=== PATIENT | female | born 1995 | race Caucasian/White ===

== ENCOUNTER 2017-03-28 19:38 | Emergency (ER) | payer OTHER ==
--- NOTE | 2017-03-28 20:56 | ED ---
Female Urogenital HPI - General Chief complaint: Vaginal Bleeding Stated complaint: 12 weeks and bleeding Time Seen by Provider: 03/28/17 20:15 Source: patient, RN notes reviewed, old records reviewed Mode of arrival: ambulatory Limitations: no limitations - History of Present Illness Initial comments: This patient is a 21-year-old female presents emergency department to the chief complaint of an episode of vaginal bleeding. She reports that she was at dinner and Estuardo is that a terry of fluid from her vaginal wall. She states that she is currently 12 weeks . She follows up with an SCHEDULING ASSISTANT in [place]. She states that she has no significant cramping or lower abdominal pain. Last Menstrual Period: 01/09/17 - Related Data Home Medications Medication Instructions Recorded Confirmed EPINEPHrine (Auto Inject) [Epipen] 0.3 mg IM ONCE PRN 12/21/16 03/28/17 lamoTRIgine [LaMICtal] 200 mg PO BID 12/21/16 03/28/17 Pnv,Calcium 72/Iron/Folic Acid 1 tab PO DAILY 03/28/17 03/28/17 [ Plus Tablet] Allergies Allergy/AdvReac Type Severity Reaction Status Date / Time blueberry Allergy Unknown Verified 03/28/17 20:13 coconut Allergy Unknown Verified 03/28/17 20:13 egg Allergy Unknown Verified 03/28/17 20:13 hydromorphone [From Dilaudid] Allergy Anaphylaxis Verified 03/28/17 20:13 Mushroom Allergy Unknown Verified 03/28/17 20:13 Penicillins Allergy Rash/Hives Verified 03/28/17 20:13 Review of Systems ROS Statement: Those systems with pertinent positive or pertinent negative responses have been documented in the HPI. ROS Other: All systems not noted in ROS Statement are negative. Past Medical History Past Medical History: Asthma, Seizure Disorder Additional Past Medical History / Comment(s): Endometriosis, TMJ, chronic migraines History of Any Multi-Drug Resistant Organisms: None Reported Past Surgical History: Adenoidectomy, Tonsillectomy Past Psychological History: Anxiety, Bipolar, Depression Smoking Status: Current every day smoker Past Alcohol Use History: None Reported Past Drug Use History: None Reported General Exam - General Exam Comments Initial Comments: This patient is well appearing 21 year old female, no distress. Limitations: no limitations General appearance: alert, in no apparent distress Head exam: Present: atraumatic, normocephalic, normal inspection Eye exam: Present: normal appearance, PERRL, EOMI. Absent: scleral icterus, conjunctival injection, periorbital swelling ENT exam: Present: normal exam, mucous membranes moist Neck exam: Present: normal inspection. Absent: tenderness, meningismus, lymphadenopathy Cardiovascular Exam: Present: regular rate, normal rhythm, normal heart sounds. Absent: systolic murmur, diastolic murmur, rubs, gallop, clicks External exam: Present: normal external exam Speculum exam: Present: normal speculum exam. Absent: erythema, vaginal discharge, vaginal bleeding By manual exam: Present: normal by manual exam Extremities exam: Present: normal inspection, full ROM, normal capillary refill. Absent: tenderness, pedal edema, joint swelling, calf tenderness Back exam: Present: normal inspection Neurological exam: Present: alert, oriented X3, CN II-XII intact Psychiatric exam: Present: normal affect, normal mood Skin exam: Present: warm, dry, intact, normal color. Absent: rash Course Vital Signs 03/28/17 03/28/17 19:59 22:41 Temperature 98.3 F 98.5 F Pulse Rate 97 78 Respiratory 20 18 Rate Blood Pressure 142/83 130/60 O2 Sat by Pulse 100 100 Oximetry Medical Decision Making - Medical Decision Making This patient is a 21-year-old female presents emergency department to the chief complaint of an episode of vaginal bleeding. She reports that she was at dinner and Estuardo is that a terry of fluid from her vaginal wall. Patient has no vaginal bleeding and cervix appears normal. US shows viable IUP measing 12 weeks. No complicating process. Patient will follow up with PCP. She is RH negative but there is no bleeding or signs of active miscarriage. - Lab Data Lab Results 03/28/17 03/28/17 03/28/17 Range/Units 20:24 20:36 20:40 HCG, Quant mIU/mL Urine Color Light Yellow Urine Appearance Clear (Clear) Urine pH 5.5 (5.0-8.0) Ur Specific [place] 1.005 (1.001-1.035) Urine Protein Negative (Negative) Urine Glucose (UA) Negative (Negative) Urine Ketones Negative (Negative) Urine Blood Negative (Negative) Urine Nitrite Negative (Negative) Urine Bilirubin Negative (Negative) Urine Urobilinogen <2.0 (<2.0) mg/dL Ur Leukocyte Esterase Moderate H (Negative) Urine WBC 5 (0-5) /hpf Ur Squamous Epith Cells 5 H (0-4) /hpf Amorphous Sediment Rare H (None) /hpf Trichomonas Ag (Rapid) Negative (Negative) Blood Type O Negative Blood Type Recheck No 03/28/17 Range/Units 20:40 HCG, Quant 51658.6 mIU/mL Urine Color Urine Appearance (Clear) Urine pH (5.0-8.0) Ur Specific [place] (1.001-1.035) Urine Protein (Negative) Urine Glucose (UA) (Negative) Urine Ketones (Negative) Urine Blood (Negative) Urine Nitrite (Negative) Urine Bilirubin (Negative) Urine Urobilinogen (<2.0) mg/dL Ur Leukocyte Esterase (Negative) Urine WBC (0-5) /hpf Ur Squamous Epith Cells (0-4) /hpf Amorphous Sediment (None) /hpf Trichomonas Ag (Rapid) (Negative) Blood Type Blood Type Recheck - Radiology Data Radiology results: report reviewed Live IUP measuring 11 weeks and 4 days. Small subchorionic hemorrhage measuring 1.2 cm. Disposition Clinical Impression: 12 weeks gestation of , Vaginal spotting Disposition: HOME SELF-CARE Condition: Good Instructions: Threatened Miscarriage (ED) Additional Instructions: follow-up with primary care physician and SCHEDULING ASSISTANT. No heavy lifting, pelvic rest. Return to emergency department if any alarming signs or symptoms occur. hormone measures 51,520. Referrals: Nonstaff,Physician [Primary Care Provider] - 1-2 days Time of Disposition: 22:25
[2017-03-28 21:12] LABS: Amorphous Sediment,Urine Rare /hpf; Appearance,Urine Clear (Clear); Bilirubin,Urine Negative (Negative); Blood,Urine Negative (Negative); Color,Urine Light Yellow; Glucose,Urine (UA) Negative (Negative); Ketones,Urine Negative (Negative); Leukocyte Esterase,Urine Moderate (Negative); Nitrite,Urine Negative (Negative); PH, Urine 5.5 (5.0-8.0); Protein,Urine Negative (Negative); Specific Gravity,Urine 1.005 (1.001-1.035); Squamous Epithelial Cell,Urine 5 /hpf (0-4); Urobilinogen,Urine <2.0 mg/dL (<2.0); WBC,Urine 5 /hpf (0-5)
--- NOTE | 2017-03-28 21:27 | US ---
EXAMINATION TYPE: US OB <= 14 wk fetus DATE OF EXAM: 03/28/2017 COMPARISON: NONE CLINICAL HISTORY: pain. EXAM PERFORMED: Transabdominal (TA) EXAM MEASUREMENTS: GESTATIONAL AGE / DATING Physician Established: (11 weeks/4 days) EDC: 10/13/17 Dates by LMP: LMP unknown Dates by First Scan: No previous this is first scan done here Dates by Current Scan for: (11 weeks/5 days) EDC: 10/12/17 MATERNAL ANATOMY Uterus: 11.7 x 8.2 x 8.2 cm; Anteverted, cervix appears closed and measures wnl Right Ovary: Appears wnl Left Ovary: Hypoechoic area noted measuring 4.4 x 1.4 x 3.0 cm Post CDS / Adnexa: wnl Presence of free fluid: no Presence of corpus luteal cyst: no Presence of subchorionic bleed: Yes, lateral inferior to gestational sac measuring 1.2 x 0.6 x 0.7 cm GESTATION / SURVEY CRL: 4.9 cm (11 weeks/4 days) Heart Rate: 162 bpm Rhythm: Normal IUP: Viable IUP Date of LMP: unknown Beta HcG (if available): N/A IMPRESSION: Live intrauterine corresponding to an 11 week 4 day gestation, the heart rate is 162 bpm. There is a subchorionic hemorrhage measuring up to 1.2 cm.
[2017-03-28 22:43] VITALS: BP 130/60; PULSE 78; RESP 18; TEMP 98.5
[2017-03-31 14:54] LABS: C. trachomatis,PCR Negative (Neg,Equiv); Chlamydia trachomatis Source Genital; N. gonorrhoeae,PCR Negative (Neg,Equiv); Neisseria Source Genital
== END 2017-03-28 22:44 | disposition home or self-care (01) ==
LOC: EC 19:38
DX: O26.851 Spotting complicating pregnancy, first trimester (principal); O99.351 Diseases of the nervous system complicating pregnancy, first trimester; G40.909 Epilepsy, unspecified, not intractable, without status epilepticus; O99.331 Smoking (tobacco) complicating pregnancy, first trimester; F17.200 Nicotine dependence, unspecified, uncomplicated; Z3A.12 12 weeks gestation of pregnancy; Z79.899 Other long term (current) drug therapy; Z88.0 Allergy status to penicillin; Z88.5 Allergy status to narcotic agent; Z91.012 Allergy to eggs; Z91.018 Allergy to other foods
CPT/HCPCS: 36415; 76801; 81001; 84702; 86900; 86901; 87070; 87205; 87491; 87591; 87808; 99284

== ENCOUNTER 2017-06-27 21:00 | Outpatient (CLI) | payer OTHER ==
[2017-06-27 21:35] VITALS: BP 129/74; PULSE 100; RESP 18; TEMP 97.3
--- NOTE | 2017-06-27 22:31 | US ---
EXAMINATION TYPE: US OB >= 14 wk fetus DATE OF EXAM: 06/27/2017 COMPARISON: 03/28/2017 CLINICAL HISTORY: bleeding1 episode of leaking fluid with small amount of blood, 3, para 0, m iscarriage 1 TECHNIQUE: Transabdominal (TA) GESTATIONAL AGE / DATING Physician Established: (24 weeks/4 days) EDC: 10/13/2017 Dates by LMP: Unknown Dates by First Scan: (24 weeks/5 days) EDC: 10/12/2017 Dates by Current Scan: (24 weeks/0 days) EDC: 10/17/2017 SURVEY IUP: Single PLACENTA: Fundal/Posterior: multiple placental lakes with largest measuring 2.3cm PREVIA: No Previa NEMO: 13.2 cm Normal CERVICAL LENGTH (transabdominal: norm > 3.0cm): 3.3 cm BIOMETRY PRESENTATION: Breech LIE: Longitudinal BPD: 5.9 cm 24 weeks / 1 days HC: 22.1 cm 24 weeks / 1 days AC: 20.5 cm 25 weeks / 0 days FL: 4.4 cm 24 weeks / 2 days ESTIMATED WEIGHT IN GRAMS: 721 grams ESTIMATED WEIGHT IN LBS/OZ: 1 lbs. 9 oz. WEIGHT PERCENTAGE BASED ON ESTABLISHED DATES: 45% HC/AC: 1.08 Normal FL/AC: 21.33 Normal HEART RATE: 146 bpm RHYTHM: Normal Viable single IUP measuring 24 weeks 0 days with a heart rate of 146bpm and an estimated delivery micky e of 10/17/2017. IMPRESSION: There is satisfactory growth compared to old exam. No complicating process seen. Ultrasound ges tational age is 24 weeks. Fluid appears adequate.
--- NOTE | 2017-07-15 16:31 | P.MSEPDOC ---
Presenting Problems - Arrival Data Date of Arrival on Unit: 06/27/17 Time of Arrival on Unit: 21:00 Mode of Transport: Portable - Complaint OB-Reason for Admission/Chief Complaint: Vaginal Bleeding Comment: Pt states she had a gush of fluid and small amount of bleeding at around 1900 Medical History - Information : 3 Para: 0 Term: 0 : 0 Abortions: Spontaneous or Elective: 2 Number of Living Children: 0 - Gestational Age Gestational Age by SYEDA (wks/days): 24 Weeks and 4 Days - History Complications: Smoker Review of Systems - Review of Systems Constitutional: No problems Breast: No problems ENT: No problems Cardiovascular: No problems Respiratory: No problems Gastrointestinal: No problems Genitourinary: No problems Musculoskeletal: No problems Neurological: No problems Skin: No problems Vital Signs - Temperature Temperature: 97.3 F Temperature Source: Temporal Artery Scan - Pulse Right Brachial Pulse Rate: 100 Pulse Assessment Method: Automatic Cuff - Respirations Respiratory Rate: 18 Oxygen Delivery Method: Room Air - Blood Pressure Right Arm Blood Pressure: 129/74 Blood Pressure Mean: 92 Blood Pressure Source: Automatic Cuff Medical Screen Scoring (Pre) - Cervical Exam Dilation: Exam Deferred Effacement: Exam Deferred - Uterine Contractions Frequency: N/A Duration: N/A Intensity: N/A - Maternal Vital Signs Maternal Temperature: N/A Maternal Blood Pressure: N/A Signs of Preeclampsia: N/A Maternal Respirations: N/A - Pain Assessment Pain Scale Used: Numeric (1 - 10) Pain Intensity: 0 - Assessment Baseline FHR: 140 Heart Rate - NICHD Category: Category I (Normal) = 0 - Total Score Total Score (Pre): 0 - Level of Risk Level of Risk: Low (0-5) Physician Notification (Pre) - Physician Notified Physician Notified Date: 06/27/17 Physician Notified Time: 21:20 Physician/Practitioner Notifed:: Dr. Pan Spoke With: Dr. Pan New Order Received: Yes - Notification Comment Comment: Order a complete ob u/s and to call with results Medical Screen Scoring (Post) - Cervical Exam Dilation: Exam Deferred Effacement: Exam Deferred Membranes: Intact - Uterine Contractions Frequency: N/A Duration: N/A Intensity: N/A - Maternal Vital Signs Maternal Temperature: N/A Maternal Blood Pressure: N/A Signs of Preeclampsia: N/A Maternal Respirations: N/A - Total Score Total Score (Post): 0 - Post Treatment Level of Risk Post Treatment Level of Risk: Low (0-5) Physician Notification (Post) - Physician Notified Physician Notified Date: 06/27/17 Physician Notified Time: 22:20 Physician/Practitioner Notified:: Dr. Pan Spoke With: Dr. Pan New Order Received: Yes - Notification Comment Comment: Dr. Pan called and given report on pt spec exam and negative amnisure. Orders recieved to discharge pt to home and to follow up with pts on thursday Disposition - Disposition OB Disposition: Discharge to home Discharge Date: 06/27/17 Discharge Time: 22:30 I agree with the RN Medical Screening Exam: Yes Risk & Benefit of care provided described in d/c instruction: Yes Diagnosis: FALSE LABOR, UNSPECIFIED
== END 2017-06-27 22:27 | disposition home or self-care (01) ==
LOC: FBPOP 21:00
PROVIDERS: ATTEND Obstetrics & Gynecology
DX: O47.02 False labor before 37 completed weeks of gestation, second trimester (principal); Z3A.24 24 weeks gestation of pregnancy
CPT/HCPCS: 84112; 76805; G0463; 99213